=== PATIENT | female | born 1945 | race Caucasian/White ===

== ENCOUNTER 2021-08-25 11:30 | Inpatient (IN) | payer MEDICARE, OTHER ==
[2021-08-26] MEDS ORDERED: oxyCODONE 5 MG Tab PO PRN (12:45)
[2021-08-26] MEDS: oxyCODONE 5 MG Tab PO PRN ×2 (13:22→20:55)
[2021-08-26] MEDS: Acetaminophen 325 MG Tab PO SCH ×2 (16:42→20:19)
[2021-08-26] MEDS: Aspirin 325 MG Tab.EC PO SCH (20:19)
[2021-08-26] MEDS: Simvastatin 40 MG Tab PO SCH (20:20)
[2021-08-27] MEDS: traMADol 50 MG Tab PO PRN ×2 (00:12→13:58)
[2021-08-27] MEDS: oxyCODONE 5 MG Tab PO PRN ×2 (07:42→22:59)
[2021-08-27] MEDS: metFORMIN 500 MG Tab PO SCH (07:49)
[2021-08-27] MEDS ORDERED: Pantoprazole 20 MG Tab, Delayed Release PO SCH (09:00)
[2021-08-27] MEDS ORDERED: Levothyroxine 50 MCG Tab PO SCH (09:00)
[2021-08-27] MEDS: Aspirin 325 MG Tab.EC PO SCH ×2 (09:04→20:43)
[2021-08-27] MEDS: Oxybutynin 5 MG Tab.ER PO SCH (09:04)
[2021-08-27] MEDS: Acetaminophen 325 MG Tab PO SCH ×4 (09:05→20:43)
[2021-08-27] MEDS: Lisinopril 5 MG Tab PO SCH (09:05)
[2021-08-27] MEDS: Aluminum Hydroxide/Magnesium Hydroxide Susp 30 ML Cup PO PRN (14:25)
[2021-08-27] MEDS: Simvastatin 40 MG Tab PO SCH (20:43)
[2021-08-28] MEDS: Pantoprazole 20 MG Tab, Delayed Release PO SCH (06:17)
[2021-08-28] MEDS: Levothyroxine 50 MCG Tab PO SCH (06:18)
[2021-08-28] MEDS: metFORMIN 500 MG Tab PO SCH (08:16)
[2021-08-28] MEDS: Oxybutynin 5 MG Tab.ER PO SCH (08:17)
[2021-08-28] MEDS: Aspirin 325 MG Tab.EC PO SCH ×2 (08:17→20:11)
[2021-08-28] MEDS: Lisinopril 5 MG Tab PO SCH (08:17)
[2021-08-28] MEDS: Acetaminophen 325 MG Tab PO SCH ×4 (08:22→20:11)
[2021-08-28] MEDS: oxyCODONE 5 MG Tab PO PRN (11:47)
[2021-08-28] MEDS: Simvastatin 40 MG Tab PO SCH (20:11)
[2021-08-29] MEDS: Levothyroxine 50 MCG Tab PO SCH (05:05)
[2021-08-29] MEDS: Pantoprazole 20 MG Tab, Delayed Release PO SCH (05:05)
[2021-08-29] MEDS: metFORMIN 500 MG Tab PO SCH (07:36)
[2021-08-29] MEDS: oxyCODONE 5 MG Tab PO PRN ×2 (08:40→19:35)
[2021-08-29] MEDS: Aspirin 325 MG Tab.EC PO SCH ×2 (08:41→20:33)
[2021-08-29] MEDS: Acetaminophen 325 MG Tab PO SCH ×4 (08:41→20:31)
[2021-08-29] MEDS: Oxybutynin 5 MG Tab.ER PO SCH (08:41)
[2021-08-29] MEDS: Lisinopril 5 MG Tab PO SCH (08:42)
[2021-08-29] MEDS: Simvastatin 40 MG Tab PO SCH (20:31)
[2021-08-30] MEDS: Pantoprazole 20 MG Tab, Delayed Release PO SCH (05:38)
[2021-08-30] MEDS: Aluminum Hydroxide/Magnesium Hydroxide Susp 30 ML Cup PO PRN (05:53)
[2021-08-30] MEDS: Levothyroxine 50 MCG Tab PO SCH (05:58)
[2021-08-30] MEDS: metFORMIN 500 MG Tab PO SCH (07:55)
[2021-08-30] MEDS: Aspirin 325 MG Tab.EC PO SCH ×2 (07:59→20:59)
[2021-08-30] MEDS: Oxybutynin 5 MG Tab.ER PO SCH (07:59)
[2021-08-30] MEDS: Lisinopril 5 MG Tab PO SCH (08:00)
[2021-08-30] MEDS: Acetaminophen 325 MG Tab PO SCH ×4 (08:01→20:59)
[2021-08-30] MEDS: Simvastatin 40 MG Tab PO SCH (20:59)
[2021-08-30] MEDS: oxyCODONE 5 MG Tab PO PRN (23:41)
[2021-08-31] MEDS: Aluminum Hydroxide/Magnesium Hydroxide Susp 30 ML Cup PO PRN (03:12)
[2021-08-31] MEDS: traMADol 50 MG Tab PO PRN (03:32)
[2021-08-31] MEDS: Pantoprazole 20 MG Tab, Delayed Release PO SCH (05:48)
[2021-08-31] MEDS: Levothyroxine 50 MCG Tab PO SCH (06:10)
[2021-08-31] MEDS: metFORMIN 500 MG Tab PO SCH (07:54)
[2021-08-31] MEDS: Aspirin 325 MG Tab.EC PO SCH ×2 (08:00→20:18)
[2021-08-31] MEDS: Oxybutynin 5 MG Tab.ER PO SCH (08:00)
[2021-08-31] MEDS: Acetaminophen 325 MG Tab PO SCH ×4 (08:00→20:17)
[2021-08-31] MEDS: Lisinopril 5 MG Tab PO SCH (08:00)
[2021-08-31] MEDS: Simvastatin 40 MG Tab PO SCH (20:18)
[2021-09-01] MEDS: oxyCODONE 5 MG Tab PO PRN ×2 (03:07→21:44)
[2021-09-01] MEDS: Levothyroxine 50 MCG Tab PO SCH (05:34)
[2021-09-01] MEDS: Pantoprazole 20 MG Tab, Delayed Release PO SCH (05:35)
[2021-09-01] MEDS: metFORMIN 500 MG Tab PO SCH (08:31)
[2021-09-01] MEDS: Lisinopril 5 MG Tab PO SCH (08:32)
[2021-09-01] MEDS: Oxybutynin 5 MG Tab.ER PO SCH (08:32)
[2021-09-01] MEDS: Aspirin 325 MG Tab.EC PO SCH ×2 (08:32→20:22)
[2021-09-01] MEDS: Acetaminophen 325 MG Tab PO SCH ×4 (08:32→20:22)
[2021-09-01] MEDS ORDERED: Bisacodyl 5 MG Tab PO PRN (17:59)
[2021-09-01] MEDS: Simvastatin 40 MG Tab PO SCH (20:22)
[2021-09-02] MEDS: Levothyroxine 50 MCG Tab PO SCH (05:59)
[2021-09-02] MEDS: Pantoprazole 20 MG Tab, Delayed Release PO SCH (05:59)
[2021-09-02] MEDS: Aspirin 325 MG Tab.EC PO SCH ×2 (08:04→20:49)
[2021-09-02] MEDS: Acetaminophen 325 MG Tab PO SCH ×4 (08:04→20:49)
[2021-09-02] MEDS: Oxybutynin 5 MG Tab.ER PO SCH (08:04)
[2021-09-02] MEDS: metFORMIN 500 MG Tab PO SCH (08:04)
[2021-09-02] MEDS: Lisinopril 5 MG Tab PO SCH (08:04)
[2021-09-02] MEDS: traMADol 50 MG Tab PO PRN ×2 (10:06→16:07)
[2021-09-02] MEDS: Simvastatin 40 MG Tab PO SCH (20:49)
[2021-09-03] MEDS: traMADol 50 MG Tab PO PRN (03:00)
[2021-09-03] MEDS: Aluminum Hydroxide/Magnesium Hydroxide Susp 30 ML Cup PO PRN (04:02)
[2021-09-03] MEDS: Levothyroxine 50 MCG Tab PO SCH (06:00)
[2021-09-03] MEDS: Pantoprazole 20 MG Tab, Delayed Release PO SCH (06:00)
[2021-09-03] MEDS: Acetaminophen 325 MG Tab PO SCH (09:08)
[2021-09-03] MEDS: metFORMIN 500 MG Tab PO SCH (09:10)
[2021-09-03] MEDS: Lisinopril 5 MG Tab PO SCH (09:11)
[2021-09-03] MEDS: Aspirin 325 MG Tab.EC PO SCH (09:11)
[2021-09-03] MEDS: Oxybutynin 5 MG Tab.ER PO SCH (09:11)
== END 2021-09-03 10:35 | disposition home health service (06) | DRG 561 ==
LOC: FB.MS 08-26 11:48
PROVIDERS: ADMIT Family Medicine; ATTEND Family Medicine
DX: Z47.1 Aftercare following joint replacement surgery (principal); Z96.652 Presence of left artificial knee joint; I10 Essential (primary) hypertension; E66.9 Obesity, unspecified; E78.5 Hyperlipidemia, unspecified; K21.9 Gastro-esophageal reflux disease without esophagitis; E03.9 Hypothyroidism, unspecified; E11.9 Type 2 diabetes mellitus without complications; G89.29 Other chronic pain; M25.562 Pain in left knee; D64.9 Anemia, unspecified; K59.00 Constipation, unspecified; Z68.35 Body mass index [BMI] 35.0-35.9, adult; Z79.890 Hormone replacement therapy; Z79.82 Long term (current) use of aspirin; Z79.899 Other long term (current) drug therapy; Z79.84 Long term (current) use of oral hypoglycemic drugs
CPT/HCPCS: 81001; 82947; 97110-GP; 97116-GP; 97161-GP; 97166-GO; 97530-GO; 97530-GP; 97535-GO; A9270-GY